=== PATIENT | male | born 1940 | race African-American/Black ===

== ENCOUNTER 2022-11-04 16:01 | Emergency (ER) | payer OTHER ==
[~2022-11-04] VITALS: Ht 188 cm; Wt 82.0 kg
[2022-11-04 16:36] LABS: BASOPHILS % 0.2 % (0.0-2.0); EOSINOPHILS % 0.6 % (0.0-5.0); HEMATOCRIT. 38.4 % (42.0-52.0); HEMOGLOBIN. 12.5 g/dL (14.0-18.0); LYMPHOCYTES % 22.8 % (20.0-50.0); MEAN CORPUSCULAR VOLUME 82.7 fL (80.0-94.0); MEAN PLATELET VOLUME 7.5 fl (7.4-10.4); MONOCYTES % 11.8 % (2.0-8.0); NEUTROPHILS % 64.6 % (40.0-76.0); PLATELET 280 x1000/uL (130-400); RED BLOOD CELL COUNT 4.65 mill/uL (4.7-6.1); RED CELL DISTRIBUTION WIDTH 14.5 % (11.6-14.6)
[2022-11-04 16:43] LABS: INR 1.2; PROTHROMBIN TIME 12.4 sec (9.6-11.0)
[2022-11-04 16:49] LABS: CHLORIDE 108 mEq/L (98-107)
[2022-11-04 16:57] LABS: ETHANOL BLOOD < 10 mg/dL (-10)
[2022-11-04] MEDS ORDERED: ASPIRIN 325MG EC TABLET PO ONE (21:45)
[2022-11-05 00:17] VITALS: BP 158/75
== END 2022-11-05 00:41 | disposition short-term general hospital (02) ==
LOC: ER 16:01
DX: I63.9 Cerebral infarction, unspecified (principal); E78.00 Pure hypercholesterolemia, unspecified; Z20.822 Contact with and (suspected) exposure to COVID-19; Z98.890 Other specified postprocedural states; Z86.73 Personal history of transient ischemic attack (TIA), and cerebral infarction without residual deficits
CPT/HCPCS: 36415; 70450; 70496; 70498; 71045; 80053; 80320; 85025; 85610; 87426; 93005; 99291; C9803; G0480